=== PATIENT | male | born 1980 | race Caucasian/White ===

== ENCOUNTER 2019-07-06 06:31 | Day surgery (SDC) | payer OTHER ==
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
[2019-07-06] MEDS ORDERED: Rocuronium 50 MG/5 ML Vial ONE (06:54)
[2019-07-06] MEDS ORDERED: Ondansetron 4 MG/2 ML SDV ONE (06:54)
[2019-07-06] MEDS ORDERED: Lactated Ringers 1,000 ML ONE (06:54)
[2019-07-06] MEDS ORDERED: ceFAZolin 1 GM Vial ONE (06:54)
[2019-07-06] MEDS ORDERED: Ketorolac 30 MG/ML SDV ONE (06:54)
[2019-07-06] MEDS ORDERED: Midazolam 1 MG/ML 2 ML SDV ONE (06:54)
[2019-07-06] MEDS ORDERED: Lidocaine 1% 8 ML ONE (06:54)
[2019-07-06] MEDS ORDERED: Dexamethasone 4 MG/ML 5 ML MDV ONE (06:54)
[2019-07-06] MEDS ORDERED: Propofol 200 MG/20 ML SDV ONE ×2 (06:54→08:35)
[2019-07-06] MEDS ORDERED: fentaNYL 250 MCG/5 ML SDV ONE (06:55)
[2019-07-06] MEDS ORDERED: Ropivacaine 0.5% 5 MG/ML 30 ML SDV ONE (06:58)
[2019-07-06] MEDS ORDERED: EPINEPHrine 1 MG/1 ML Amp ONE (06:58)
[2019-07-06] MEDS ORDERED: Sodium Chloride 0.9% 10 ML Syringe FLUSH PRN (07:00)
[2019-07-06] MEDS ORDERED: Lidocaine 1%/Sod Bicarbonate in NS 8.4% 1 ML Syringe IDERM PRN (07:00)
[2019-07-06] MEDS ORDERED: Lactated Ringers 1,000 ML IV SCH (07:00)
[2019-07-06] MEDS ORDERED: Bupivacaine 0.25% 10 ML SDV ONE (07:08)
--- NOTE | 2019-07-06 08:01 | PCM.SN ---
- Free Text/Narrative Note: Anesthesia Note: (Interscalene block note) Date: 07/06/2019 Time Out: 738 Start: 738 Stop: 748 Surgical Procedure: Left Distal Biceps Tendon Repair Diagnosis: Left Rupture of distal biceps tendon Current Procedure: Left interscalene block under US guidance for postoperative pain control requested by Dr. Saldana. Patient chart reviewed, risk/benefits discussed with patient, consent obtained. Patient positioned supine, monitors/alarms on, oxygen placed via nasal cannula at 2 LPM. IV sedation administered: Versed 2mg IV @0729 Fentanyl 100mcg IV @0730 Left neck area prepped with chloraprep x2. Sterile drapes placed with aseptic technique. Under US guidance (sterile US sleeve) left subclavian artery visualized along with the left brachial plexus. Plexus followed cephalad up to C6 cricoid level, and area localized with 2mls of 1% lidocaine. 22gauge 2 inch stimiplex needle inserted under US and guided to brachial plexus C5-C6 trunks with 0.44mV with stimulation of biceps noted. Stimulation abolished at 0.2mVs. with 1ml of Normal Saline injected to confirm needle not placed intraneurally. Incremental injection of 5mls with negative aspiration prior to each injection of 0.5% ropivacaine with 1:200,000 epinephrine. Total volume=30mls. Please refer to nurses notes for vital signs, patient tolerated procedure well. Thank you! Brandi Joseph CRNA
[2019-07-06] MEDS ORDERED: diphenhydrAMINE 50 MG/ML SDV IVPUSH PRN (08:58)
[2019-07-06] MEDS ORDERED: HYDROmorphone 0.5 MG/0.5 ML Syringe IVPUSH PRN (08:58)
[2019-07-06] MEDS ORDERED: fentaNYL 100 MCG/2 ML SDV IVPUSH PRN (08:58)
[2019-07-06] MEDS ORDERED: ePHEDrine 50 MG/ML SDV IVPUSH PRN (08:58)
[2019-07-06] MEDS ORDERED: Midazolam 1 MG/ML 2 ML SDV IVPUSH PRN (08:58)
[2019-07-06] MEDS ORDERED: Albuterol 0.083% 2.5 MG/3 ML Neb Soln NEB PRN (08:58)
[2019-07-06] MEDS ORDERED: Ondansetron 4 MG/2 ML SDV IVPUSH PRN (08:58)
[2019-07-06] MEDS ORDERED: Phenylephrine 1 MG in Sodium Chloride 0.9% 10 ML IV SCH (09:00)
[2019-07-06] MEDS ORDERED: Neostigmine Methylsulfate 1 MG/ML 5 ML Syringe ONE (09:28)
--- NOTE | 2019-07-06 10:43 | PCM.POSTAN ---
POST ANESTHESIA ASSESSMENT - MENTAL STATUS Mental Status: Alert - VITAL SIGNS Vital Signs: Last Vital Signs Temp 36.8 C 07/06/19 10:37 Pulse 59 L 07/06/19 10:37 Resp 16 07/06/19 10:37 BP 123/71 07/06/19 10:37 Pulse Ox 96 07/06/19 10:37 - RESPIRATORY Respiratory Status: Respiratory Rate WNL, Airway Patent, O2 Saturation Stable, Supplemental Oxygen - CARDIOVASCULAR CV Status: Pulse Rate WNL, Blood Pressure Stable - GASTROINTESTINAL GI Status: No Symptoms - POST OP HYDRATION Hydration Status: Adequate & Stable
--- NOTE | 2019-07-06 11:44 | PCM48HPAN ---
Post Anesthesia Note - EVALUATION WITHIN 48HRS OF ANESTHETIC Vital Signs in Normal Range: Yes Patient Participated in Evaluation: Yes Respiratory Function Stable: Yes Airway Patent: Yes Cardiovascular Function Stable: Yes Hydration Status Stable: Yes Pain Control Satisfactory: Yes Nausea and Vomiting Control Satisfactory: Yes Mental Status Recovered: Yes Vital Signs: Last Vital Signs Temp 36.6 C 07/06/19 11:25 Pulse 70 07/06/19 11:25 Resp 18 07/06/19 11:25 BP 122/93 H 07/06/19 11:25 Pulse Ox 95 07/06/19 11:25 - COMMENTS/OBSERVATIONS Free Text/Narrative:: Patient informed of lab draw required for health care provider who experienced an exposure to his blood. Patient exhibited understanding and concern for provider, with patient denying and infectious disease processes known to him.
--- NOTE | 2019-07-11 08:48 | CR ---
Left elbow: Three fluoroscopic spot views were obtained of the left elbow. Study obtained utilizing C-arm device. Study shows anchor compatible with surgery for biceps tendon injury. Fluoroscopy time is given as 22.3 seconds. Impression: 1. Procedural study as noted above. Diagnostic code #2 I agree with preliminary report from [facility], finalized on 07/06/19, 11:49 AM Central Time
--- NOTE | 2019-07-11 12:40 | PCM.OPNOTE ---
- General Post-Op/Procedure Note Date of Surgery/Procedure: 07/06/19 Operative Procedure(s): left distal biceps tendon repair Pre Op Diagnosis: left distal bicep tendon rupture Post-Op Diagnosis: Same Anesthesia Technique: General LMA, Local Primary Surgeon: Jimmy Saldana Anesthesia Provider: Brandi Joseph Director Building: Alana Cervantes in mLs: 10 Complications: None Condition: Good
--- NOTE | 2019-07-11 13:24 | OR ---
DATE OF OPERATION: 07/06/2019 SURGEON: Jimmy Saldana MD OPERATION PERFORMED: Left distal biceps tendon repair. PREOPERATIVE DIAGNOSIS: Left distal biceps tendon rupture. POSTOPERATIVE DIAGNOSIS: Left distal biceps tendon rupture. ANESTHESIA: General LMA with local. ANESTHESIA PROVIDER: Brandi Joseph CRNA. HEATING MECHANIC: Alana Cervantes PA-C. ESTIMATED BLOOD LOSS: 10 mL. COMPLICATIONS: None. CONDITION: Stable. DESCRIPTION OF PROCEDURE: The patient was identified in the preoperative holding area. Proper site was marked and identified by the surgeon. The patient was taken back to the operating theater, where after adequate anesthesia, a nonsterile tourniquet was applied to the left upper extremity. The left upper extremity was sterilely prepped and draped in the usual sterile fashion. OR-wide time-out was performed. The patient received 2 g IV Ancef. The left upper extremity was then exsanguinated and tourniquet was insufflated to 225 mmHg. A standard transverse incision centered over the radial tuberosity was then done. Care was to protect the neurovascular bundles. Blunt dissection was taken down to the biceps tendon. It was noted to be significantly elongated and scarred all the way from proximally to distally. It was still attached distally to the tuberosity, but it significantly had been stretched and was redundant. At this point, it was resected from its attachment to the tuberosity and was then shortened. There was a lot of fatty infiltration distally in the tendon, so we brought it back to good tendinous tissue, so it was significantly shortened, but we had good tissue to work with. At this time, using a FiberLoop, 20 mm of the distal portion of the tendon was whip-stitched with the FiberLoop. At this time, attention was turned to the radius. It was placed into hyper-supination. The radial tuberosity was then identified. The guidepin for the Arthrex distal biceps tendon repair kit was placed under direct visualization in the center portion of the radial tuberosity with 30 degrees distal and 30 degrees of ulnar deviation. This was placed bi-cortically. Then, the 8 mm reamer was then reamed just through the proximal cortex. There was a small amount of the ulnar side of the radial tuberosity cortex that was reamed out, but it was found to have sufficient cortex still around for the Endobutton as well as interference screw. The Endobutton was then placed through the previous FiberLoop suture ends and then was shuttled through the distal cortex and then was flipped. The tendon was then shuttled down into the reamer hole and an interference screw was placed after arthroscopic knot pusher was used to tie a knot through the tendon to hold it in place with the Endobutton. At this time, it was found to have adequate evangelical in the radial tuberosity on C-arm fluoroscopy. The patient was a lacking roughly 10 degrees of extension, but this was secondary to the poor tissue and fatty infiltration that we had to shorten the tendon, and this will be stretched out with physical therapy. The patient had adequate saline irrigated through the wound 3-0 vicryl used subcutaneously and Monocryl was used for the skin. He had a sterile soft dressing and a posterior slab splint applied and was sent to PACU in a stable condition. NEREIDA /[id number]
== END 2019-07-06 12:21 | disposition home or self-care (01) ==
LOC: JD.SDS 06:31
PROVIDERS: ATTEND Orthopaedic Surgery
DX: S46.212A Strain of muscle, fascia and tendon of other parts of biceps, left arm, initial encounter (principal); F17.220 Nicotine dependence, chewing tobacco, uncomplicated; G89.18 Other acute postprocedural pain; X58.XXXA Exposure to other specified factors, initial encounter; Z79.899 Other long term (current) drug therapy
CPT/HCPCS: 24342; 64415; 76000; 87641; C1776; J0171; J0690; J1100; J1885; J2001; J2250; J2405; J2704; J2710; J2795; J3010; J3490; J7120; 01710